=== PATIENT | male | born 1995 | race Caucasian/White ===

== ENCOUNTER 2023-07-12 04:39 | Emergency (ER) | payer MEDICAID ==
[~2023-07-12] VITALS: Ht 172.7 cm; Wt 73.2 kg
[2023-07-12 04:43] VITALS: BP 127/80; PULSE 98; RESP 18; TEMP 98.7; O2SAT 100
== END 2023-07-12 05:32 | disposition home or self-care (01) ==
LOC: ER 04:39
DX: J02.9 Acute pharyngitis, unspecified (principal)
CPT/HCPCS: 99281

== ENCOUNTER 2025-01-04 01:26 | Emergency (ER) | payer SELFPAY ==
[~2025-01-04] VITALS: Ht 175.3 cm; Wt 64.0 kg
[2025-01-04 01:27] VITALS: O2SAT 97
[2025-01-04 01:37] VITALS: BP 147/92; PULSE 110; RESP 18; TEMP 37.1; O2SAT 100
== END 2025-01-04 04:11 | disposition left against medical advice (07) ==
LOC: ER 01:26
DX: K08.89 Other specified disorders of teeth and supporting structures (principal); Z53.21 Procedure and treatment not carried out due to patient leaving prior to being seen by health care provider

== ENCOUNTER 2025-11-13 18:27 | Emergency (ER) | payer SELFPAY ==
[~2025-11-13] VITALS: Ht 177.8 cm; Wt 91.0 kg
[2025-11-13 18:38] VITALS: O2SAT 97
[2025-11-13] MEDS: ACETAMINOPHEN 325MG TABLET PO ONE (22:04)
[2025-11-13] MEDS: SULFAMETHOXAZOLE/TRIMETHOPRIM 800/160MG TABLET PO ONE (22:05)
[2025-11-13] MEDS: CEPHALEXIN 250MG CAPSULE PO ONE (22:06)
[2025-11-13] MEDS: IBUPROFEN 600MG TABLET PO ONE (22:08)
[2025-11-13] MEDS ORDERED: IBUP-1455 MT (22:47)
[2025-11-13] MEDS ORDERED: SULF1TAB48 MT (22:47)
[2025-11-13] MEDS ORDERED: CEPH500T MT (22:47)
[2025-11-13 23:19] VITALS: BP 122/70; PULSE 88; RESP 16; TEMP 37; O2SAT 97
== END 2025-11-13 23:15 | disposition home or self-care (01) ==
LOC: ER 18:27
DX: L73.9 Follicular disorder, unspecified (principal); L02.31 Cutaneous abscess of buttock
CPT/HCPCS: 10160; 99284